=== PATIENT | female | born 1980 ===

== ENCOUNTER 2018-08-07 11:53 | Outpatient (CLI) | payer OTHER | END 2018-08-07 14:49 | disposition home or self-care (01) | LOC: SONOGRAMA 11:53 | DX: E04.2 Nontoxic multinodular goiter (principal) ==

== ENCOUNTER 2018-08-19 11:46 | Outpatient (CLI) | payer OTHER | END 2018-08-19 14:59 | disposition home or self-care (01) | LOC: SONOGRAMA 11:46 | DX: E04.2 Nontoxic multinodular goiter (principal) ==